=== PATIENT | male | born 1960 | race Caucasian/White ===

== ENCOUNTER → 2024-02-22 03:57 | Outpatient (CLI) | payer MEDICARE, BC, SELFPAY ==
--- NOTE | 2024-02-22 06:45 | DI.US_ITS ---
Exam(s) US AAA SCREENING EXAM: US AAA SCREENING CLINICAL HISTORY: Recommended age appropriate screen, ex smoker, Z87.891 COMPARISON: No exams were available for comparison FINDINGS: Abdominal Aorta: Proximal: 2.2 x 1.6 cm Mid: 1.9 x 2.2 cm Distal: 2.0 x 1.9 cm Iliac's: Right: 1.1 x 1.1 cm Left: 1.2 x 1.1 cm No significant atherosclerotic disease is seen. IMPRESSION: No evidence of abdominal aortic aneurysm. DATA REPOSITORY:
== END ==
PROVIDERS: PCP Family Medicine; Visit Provider Family Medicine
DX: Z87.891 Personal history of nicotine dependence (principal); Z13.6 Encounter for screening for cardiovascular disorders
CPT/HCPCS: 36415; 76706; 80053; 80061; 86803; 87389; 87798; 86618

== ENCOUNTER 2024-02-22 05:17 | Outpatient (CLI) | payer MEDICARE, BC, SELFPAY ==
[2024-02-22 09:11] LABS: ALT 27 U/L (16-63); AST 26 U/L (15-37); Albumin 3.8 g/dL (3.4-5.0); Alkaline Phosphatase 99 U/L (46-116); Anion Gap 6.4 mmol/L (3-11); BUN 12 mg/dL (7-18); CO2 29.6 mmol/L (21.0-32.0); CREATININE 0.9 mg/dL (0.70-1.30); Calcium 8.8 mg/dL (8.5-10.1); Calculated LDL 118 mg/dL (<100); Chloride 105 mmol/L (98-107); Cholesterol 199 mg/dL (<200); Estimated GFR 94.78 (mL/min/1.73m2); Glucose 104 mg/dL (74-106); HDL Cholesterol 69 mg/dL (40-60); Potassium 4.5 mmol/L (3.5-5.1); Sodium 141 mmol/L (136-145); Total Protein 7.7 g/dL (6.4-8.2); Triglyceride 64 mg/dL (<150)
[2024-02-22 19:03] LABS: Hepatitis C Ab w Rflx HCV PCR Negative (Negative)
[2024-02-22 19:08] LABS: HIV-1/2 Ag & Ab Screen Negative (Negative)
[2024-02-25 13:06] LABS: Lyme Ab w Rflx to Lyme Confirm Negative (Negative)
[2024-02-25 18:45] LABS: Anaplasma phagocytophilum Negative (Negative); B. miyamotoi PCR Negative (Negative); Babesia divergens/MO-1 Negative (Negative); Babesia duncani Negative (Negative); Babesia microti Negative (Negative); Ehrlichia chaffeensis Negative (Negative); Ehrlichia ewingii/canis Negative (Negative); Ehrlichia muris eauclairensis Negative (Negative)
== END 2024-02-22 05:18 | disposition home or self-care (01) ==
LOC: LBO 05:17
PROVIDERS: PCP Family Medicine; Referring Provider Family Medicine; Visit Provider Family Medicine
DX: Z13.6 Encounter for screening for cardiovascular disorders (principal); W57.XXXA Bitten or stung by nonvenomous insect and other nonvenomous arthropods, initial encounter; Z11.3 Encounter for screening for infections with a predominantly sexual mode of transmission
CPT/HCPCS: 36415; 80053; 80061; 86803; 87389; 87798; 86618

== ENCOUNTER 2024-06-02 11:17 | Outpatient (REF) | payer MEDICARE, BC, SELFPAY ==
[2024-06-03 11:28] LABS: Campylobacter PCR Negative (Negative); Salmonella PCR Negative (Negative); Shiga Toxin PCR Negative (Negative); Shigella/Enteroinvasive Ecoli Negative (Negative)
[2024-06-05 21:32] LABS: Calprotectin 73.9 mcg/g
== END 2024-06-02 11:18 | disposition home or self-care (01) ==
LOC: LBO 11:17
PROVIDERS: PCP Family Medicine; Visit Provider Family Medicine
DX: R19.7 Diarrhea, unspecified (principal)
CPT/HCPCS: 87505; 83993; 87177